=== PATIENT | female | born 1965 | race Caucasian/White ===

== ENCOUNTER 2019-04-09 07:51 | Outpatient (CLI) | payer OTHER ==
[~2019-04-09 07:51] MED LIST: SYNTHROID50 MCG PO; SYNTHROID75 MCG PO
== END 2019-04-09 08:06 | disposition home or self-care (01) ==
LOC: MAMO-SONO 07:51
DX: R10.84 Generalized abdominal pain (principal); R10.30 Lower abdominal pain, unspecified; N60.11 Diffuse cystic mastopathy of right breast; N60.12 Diffuse cystic mastopathy of left breast; Z12.31 Encounter for screening mammogram for malignant neoplasm of breast

== ENCOUNTER 2019-04-14 14:43 | Outpatient (CLI) | payer OTHER | END 2019-04-14 14:44 | disposition home or self-care (01) | LOC: LAB 14:43 | DX: K21.9 Gastro-esophageal reflux disease without esophagitis (principal); R10.13 Epigastric pain; R10.84 Generalized abdominal pain; Z86.010 Personal history of colon polyps ==

== ENCOUNTER 2020-10-11 11:33 | Outpatient (CLI) | payer OTHER | END 2020-10-11 16:53 | disposition home or self-care (01) | LOC: MAMO-SONO 11:33 | PROVIDERS: ATTEND Specialist | DX: N60.12 Diffuse cystic mastopathy of left breast (principal); N60.11 Diffuse cystic mastopathy of right breast ==

== ENCOUNTER 2022-02-22 14:59 | Outpatient (CLI) | payer OTHER | END 2022-02-22 15:01 | disposition home or self-care (01) | LOC: MAMO-SONO 14:59 | PROVIDERS: ATTEND General Practice | DX: N64.4 Mastodynia (principal) ==

== ENCOUNTER 2022-03-22 08:12 | Emergency (ER) | payer OTHER ==
[~2022-03-22] VITALS: Ht 160 cm; Wt 53.1 kg
[2022-03-22] MEDS ORDERED: KETO10TA2 PO (11:17)
[2022-03-22] MEDS ORDERED: AMOX-CLAV 875-1 EACH PO (11:17)
== END 2022-03-22 11:35 | disposition home or self-care (01) ==
LOC: ER 08:12
DX: J03.90 Acute tonsillitis, unspecified (principal); E03.9 Hypothyroidism, unspecified; Z20.822 Contact with and (suspected) exposure to COVID-19

== ENCOUNTER 2022-05-29 16:21 | Outpatient (CLI) | payer OTHER ==
[~2022-05-29 16:21] MED LIST changes: +AMOX-CLAV 875-1 EACH PO; +KETO10TA2 PO
== END 2022-05-29 16:25 | disposition home or self-care (01) ==
LOC: LAB 16:21
PROVIDERS: ATTEND General Practice
DX: Z20.822 Contact with and (suspected) exposure to COVID-19 (principal)

== ENCOUNTER 2023-02-07 07:43 | Outpatient (CLI) | payer OTHER | END 2023-02-07 08:00 | disposition home or self-care (01) | LOC: SONOGRAMA 07:43 | PROVIDERS: ATTEND Specialist | DX: N95.1 Menopausal and female climacteric states (principal) ==

== ENCOUNTER → 2023-02-20 08:42 | Outpatient (CLI) | payer OTHER | END | disposition home or self-care (01) | LOC: LAB 08:42 | PROVIDERS: ATTEND General Practice | DX: E78.5 Hyperlipidemia, unspecified (principal); Z00.00 Encounter for general adult medical examination without abnormal findings; E55.9 Vitamin D deficiency, unspecified; N39.0 Urinary tract infection, site not specified; E03.9 Hypothyroidism, unspecified; R10.9 Unspecified abdominal pain ==

== ENCOUNTER 2023-07-24 09:01 | Outpatient (CLI) | payer OTHER | END 2023-07-24 09:08 | disposition home or self-care (01) | LOC: LAB 09:01 | PROVIDERS: ATTEND General Practice | DX: Z00.00 Encounter for general adult medical examination without abnormal findings (principal); E78.5 Hyperlipidemia, unspecified; E55.9 Vitamin D deficiency, unspecified; N39.0 Urinary tract infection, site not specified; R42 Dizziness and giddiness; E03.9 Hypothyroidism, unspecified; R10.9 Unspecified abdominal pain ==

== ENCOUNTER 2023-08-15 10:30 | Outpatient (CLI) | payer OTHER | END 2023-08-15 10:40 | disposition home or self-care (01) | LOC: PPH VACUNA 10:30 | PROVIDERS: ATTEND Emergency Medicine Pediatric Emergency Medicine | DX: Z23 Encounter for immunization (principal) | CPT/HCPCS: 90686; G0008 ==